=== PATIENT | female | born 1955 ===

== ENCOUNTER 2019-03-09 19:45 | Emergency (ER) | payer OTHER ==
[~2019-03-09] VITALS: Ht 177.8 cm; Wt 75.0 kg
[2019-03-09 20:14] VITALS: BP 141/90
== END 2019-03-09 21:46 | disposition left against medical advice (07) ==
LOC: ER 19:46
DX: M79.605 Pain in left leg (principal); Z53.21 Procedure and treatment not carried out due to patient leaving prior to being seen by health care provider; W22.8XXA Striking against or struck by other objects, initial encounter; Y93.89 Activity, other specified; Y92.89 Other specified places as the place of occurrence of the external cause; Y99.9 Unspecified external cause status
CPT/HCPCS: 73590; 99281